=== PATIENT | female | born 1980 | race African-American/Black ===

== ENCOUNTER 2017-11-26 18:35 | Emergency (ER) | payer BC, MEDICAID ==
[~2017-11-26] VITALS: Ht 167.6 cm; Wt 122.0 kg
[2017-11-26] MEDS ORDERED: KETOROLAC 60MG/2ML VIAL IM ONE (22:00)
[2017-11-26 22:35] VITALS: BP 132/99
== END 2017-11-26 23:03 | disposition home or self-care (01) ==
LOC: ER 18:35
DX: M25.531 Pain in right wrist (principal); M79.641 Pain in right hand; G56.00 Carpal tunnel syndrome, unspecified upper limb; I10 Essential (primary) hypertension; Z86.73 Personal history of transient ischemic attack (TIA), and cerebral infarction without residual deficits; Z98.890 Other specified postprocedural states
CPT/HCPCS: 29125; 73110; 73130; 96372; 99284; J1885

== ENCOUNTER 2017-11-27 19:28 | Emergency (ER) | payer MEDICAID ==
[~2017-11-27] VITALS: Ht 167.6 cm; Wt 123.0 kg
[2017-11-27 20:04] VITALS: BP 136/82
== END 2017-11-27 21:15 | disposition left against medical advice (07) ==
LOC: ER 19:28
DX: M79.89 Other specified soft tissue disorders (principal); Z53.21 Procedure and treatment not carried out due to patient leaving prior to being seen by health care provider

== ENCOUNTER 2018-07-22 11:07 | Emergency (ER) | payer MEDICAID ==
[~2018-07-22] VITALS: Ht 167.6 cm; Wt 125.1 kg
[2018-07-22] MEDS ORDERED: KETOROLAC 60MG/2ML VIAL IM ONE (14:45)
[2018-07-22 16:15] VITALS: BP 132/88
== END 2018-07-22 16:26 | disposition home or self-care (01) ==
LOC: ER 11:07
DX: S46.902A Unspecified injury of unspecified muscle, fascia and tendon at shoulder and upper arm level, left arm, initial encounter (principal); V49.49XA Driver injured in collision with other motor vehicles in traffic accident, initial encounter; Y93.89 Activity, other specified; Y92.410 Unspecified street and highway as the place of occurrence of the external cause; S46.802A Unspecified injury of other muscles, fascia and tendons at shoulder and upper arm level, left arm, initial encounter
CPT/HCPCS: 96372; 99283; J1885

== ENCOUNTER 2018-11-01 19:37 | Emergency (ER) | payer MEDICAID ==
[~2018-11-01] VITALS: Ht 167.6 cm; Wt 123.0 kg
[2018-11-01] MEDS ORDERED: SODIUM CHLORIDE 0.9% 1,000 ML IV ONE (23:52)
[2018-11-01] MEDS ORDERED: MORPHINE SULFATE 4 MG/ML CPJ (NOT FOR IM USE) IV STA (23:52)
[2018-11-01] MEDS ORDERED: ONDANSETRON HCL 4MG/2ML INJ IV STA (23:52)
[2018-11-02 00:39] LABS: EOSINOPHILS % 5.3 % (0.0-5.0); HEMATOCRIT. 38.6 % (36.0-48.0); HEMOGLOBIN. 13.5 g/dL (12.0-16.0); LYMPHOCYTES % 48.3 % (20.0-50.0); MEAN CORPUSCULAR HEMOGLOBIN 28.1 pg (28.0-32.0); MEAN CORPUSCULAR VOLUME 80.1 fL (81.0-99.0); MEAN PLATELET VOLUME 8.5 fl (7.4-10.4); MONOCYTES % 7.8 % (2.0-8.0); NEUTROPHILS % 37.6 % (40.0-76.0); PLATELET 278 x1000/uL (130-400); RED BLOOD CELL COUNT 4.82 mill/uL (4.2-5.4); RED CELL DISTRIBUTION WIDTH 14.8 % (11.6-14.6)
[2018-11-02 00:44] LABS: CHLORIDE 106 mEq/L (98-107)
[2018-11-02 00:49] LABS: ETHANOL BLOOD < 10 mg/dL
[2018-11-02 00:54] LABS: HCG SCREEN NEGATIVE
[2018-11-02 00:59] LABS: *AMPHETAMINES SCREEN URINE NEGATIVE (NEGATIVE); *BARBITURATES SCREEN URINE NEGATIVE (NEGATIVE); *BENZODIAZEPINES SCREEN URINE NEGATIVE (NEGATIVE); *COCAINE SCREEN URINE NEGATIVE (NEGATIVE); METHADONE URINE SCREEN NEGATIVE (NEGATIVE); OPIATES URINE SCREEN NEGATIVE (NEGATIVE)
[2018-11-02 01:01] LABS: CANNABINOID URINE SCREEN NEGATIVE (NEGATIVE); PHENCYCLIDINE URINE SCREEN NEGATIVE (NEGATIVE)
[2018-11-02 02:12] VITALS: BP 119/80
== END 2018-11-02 04:00 | disposition home or self-care (01) ==
LOC: ER 19:37
DX: N83.209 Unspecified ovarian cyst, unspecified side (principal); I10 Essential (primary) hypertension; Z86.73 Personal history of transient ischemic attack (TIA), and cerebral infarction without residual deficits
CPT/HCPCS: 36415; 74176; 80053; 80305; 80320; 83690; 84484; 84703; 85025; 96374; 96375; 99284; J2270; J2405; J7030; Z7610; G0480

== ENCOUNTER 2019-01-26 22:02 | Emergency (ER) | payer MEDICAID ==
[~2019-01-26] VITALS: Ht 167.6 cm; Wt 123.0 kg
[2019-01-27 00:44] LABS: CLARITY URINE TURBID (CLEAR); COLOR URINE RED (YELLOW); KETONES URINE 1+ (NEGATIVE); LEUKOCYTE ESTERASE URINE 3+ (NEGATIVE); NITRITE URINE NEGATIVE (NEGATIVE); OCCULT BLOOD URINE 3+ (NEGATIVE); PH URINE 5.5 (4.5-8.0); PROTEIN URINE 2+ (NEGATIVE); SPECIFIC GRAVITY URINE 1.009 (1.005-1.030); UROBILINOGEN URINE 0.2 E.U./dL (0.2-1.0)
[2019-01-27] MEDS ORDERED: CEFTRIAXONE SODIUM 250 MG/VIAL IM ONE ×2 (04:15→04:45)
[2019-01-27] MEDS ORDERED: AZITHROMYCIN 500 MG TABLET PO ONE (04:15)
[2019-01-27 04:58] VITALS: BP 140/80
[2019-01-29 15:14] LABS: CHLAMYDIA TRACHOMATIS NAA Negative (Negative); NEISSERIA GONORRHOEAE NAA Negative (Negative)
== END 2019-01-27 04:58 | disposition home or self-care (01) ==
LOC: ER 22:02
DX: N39.0 Urinary tract infection, site not specified (principal); I10 Essential (primary) hypertension
CPT/HCPCS: 81003; 81025; 87077; 87086; 87186; 87491; 87591; 96372; 99283; J0696; Z7610

== ENCOUNTER 2019-05-12 13:43 | Emergency (ER) | payer MEDICAID ==
[~2019-05-12] VITALS: Ht 167.6 cm; Wt 123.0 kg
[2019-05-12] MEDS ORDERED: KETOROLAC 30MG/ML VIAL IM ONE (17:30)
[2019-05-12 20:18] VITALS: BP 141/74
== END 2019-05-12 20:21 | disposition home or self-care (01) ==
LOC: ER 13:43
DX: M79.642 Pain in left hand (principal); M25.532 Pain in left wrist; I10 Essential (primary) hypertension; Z98.890 Other specified postprocedural states
CPT/HCPCS: 73130; 96372; 99283; J1885

== ENCOUNTER 2020-06-25 19:28 | Emergency (ER) | payer MEDICAID, OTHER ==
[~2020-06-25] VITALS: Ht 177.8 cm; Wt 90.0 kg
[2020-06-25] MEDS ORDERED: KETOROLAC 30MG/ML VIAL IV STA (19:52)
[2020-06-25 20:23] LABS: EOSINOPHILS % 8.5 % (0.0-5.0); HEMATOCRIT. 38.5 % (36.0-48.0); HEMOGLOBIN. 12.8 g/dL (12.0-16.0); MEAN CORPUSCULAR HEMOGLOBIN 26.2 pg (28.0-32.0); MEAN CORPUSCULAR VOLUME 78.6 fL (81.0-99.0); MEAN PLATELET VOLUME 8.6 fl (7.4-10.4); MONOCYTES % 8.2 % (2.0-8.0); NEUTROPHILS % 40.3 % (40.0-76.0); PLATELET 258 x1000/uL (130-400); RED BLOOD CELL COUNT 4.89 mill/uL (4.2-5.4); RED CELL DISTRIBUTION WIDTH 14.8 % (11.6-14.6)
[2020-06-25 20:24] LABS: CHLORIDE 108 mEq/L (98-107)
[2020-06-25 20:28] LABS: D-DIMER 0.88 mg/L FEU (<0.50); INR 1.1; PROTHROMBIN TIME 11.3 sec (9.6-11.0)
[2020-06-25 20:44] LABS: HCG SCREEN NEGATIVE
[2020-06-25] MEDS ORDERED: IOHEXOL-350 100 ML BOTTLE ONE (23:22)
[2020-06-25 23:35] VITALS: BP 154/82
== END 2020-06-25 23:37 | disposition home or self-care (01) ==
LOC: ER 19:28
DX: R53.1 Weakness (principal); R07.89 Other chest pain; I10 Essential (primary) hypertension; R79.1 Abnormal coagulation profile; Z86.73 Personal history of transient ischemic attack (TIA), and cerebral infarction without residual deficits; Z20.822 Contact with and (suspected) exposure to COVID-19
CPT/HCPCS: 36415; 71045; 71275; 80053; 84484; 84703; 85025; 85379; 85610; 93005; 96374; 99285; J1885; Q9967

== ENCOUNTER 2021-09-01 23:13 | Emergency (ER) | payer MEDICAID, OTHER ==
[~2021-09-01] VITALS: Ht 175.3 cm; Wt 109.0 kg
[2021-09-02] MEDS ORDERED: ONDANSETRON HCL 4MG/2ML INJ IV STA (00:19)
[2021-09-02] MEDS ORDERED: MORPHINE SULFATE 4 MG/ML CPJ (NOT FOR IM USE) IV STA (00:19)
[2021-09-02] MEDS ORDERED: SODIUM CHLORIDE 0.9% 1,000 ML IV ONE (00:30)
[2021-09-02 00:43] LABS: CLARITY URINE CLEAR (CLEAR); COLOR URINE YELLOW (YELLOW); KETONES URINE NEGATIVE (NEGATIVE); LEUKOCYTE ESTERASE URINE NEGATIVE (NEGATIVE); NITRITE URINE NEGATIVE (NEGATIVE); OCCULT BLOOD URINE NEGATIVE (NEGATIVE); PH URINE 8.5 (4.5-8.0); PROTEIN URINE NEGATIVE (NEGATIVE); SPECIFIC GRAVITY URINE 1.012 (1.005-1.030)
[2021-09-02 00:55] VITALS: BP 176/98
[2021-09-02 01:04] LABS: BASOPHILS % 0.7 % (0.0-2.0); EOSINOPHILS % 4.9 % (0.0-5.0); HEMATOCRIT. 36.9 % (36.0-48.0); HEMOGLOBIN. 12.4 g/dL (12.0-16.0); LYMPHOCYTES % 30.5 % (20.0-50.0); MEAN CORPUSCULAR HEMOGLOBIN 26.8 pg (28.0-32.0); MEAN CORPUSCULAR VOLUME 79.6 fL (81.0-99.0); MEAN PLATELET VOLUME 8.5 fl (7.4-10.4); MONOCYTES % 9.3 % (2.0-8.0); NEUTROPHILS % 54.6 % (40.0-76.0); PLATELET 254 x1000/uL (130-400); RED BLOOD CELL COUNT 4.63 mill/uL (4.2-5.4); RED CELL DISTRIBUTION WIDTH 15.2 % (11.6-14.6)
[2021-09-02 01:14] LABS: CHLORIDE 109 mEq/L (98-107)
[2021-09-02] MEDS ORDERED: HYDR-4001 MT (05:07)
== END 2021-09-02 05:50 | disposition home or self-care (01) ==
LOC: ER 23:13
DX: K80.20 Calculus of gallbladder without cholecystitis without obstruction (principal); I10 Essential (primary) hypertension; K76.0 Fatty (change of) liver, not elsewhere classified; Z86.73 Personal history of transient ischemic attack (TIA), and cerebral infarction without residual deficits
CPT/HCPCS: 36415; 76705; 80053; 81003; 81025; 83690; 85025; 96374; 96375; 99284; J2270; J2405; J7030